=== PATIENT | male | born 1965 | race Two or more races ===

== ENCOUNTER 2024-07-01 16:30 | Outpatient (RCR) | payer MEDICAID, SELFPAY ==
--- NOTE | 2024-06-18 10:16 | PTNOTE_ITS ---
PT OP Initial Eval Patient Information Outpatient Physical Therapy Treatment Date: 06/18/24 Visit Reasons: low Back pain/Radiculopathy Medical Diagnosis: M54.5 Treatment Dx #1: LBP with radiculopathy Start of Care: 06/18/24 Date of Onset: 2022 Smoking Status Smoking Status: Never smoker Initial Assessment Subjective: Pt is 59 yr old nepali speaking male who reports LBP worse on the R side since falling in 2010 and then March 2023. The LBP runs down the R LE into the calf and limits standing tolerance to about 30 mins depending on the day. Increased pain with lifting, bending and prolonged sitting. 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 PMH: HTN Imaging: Xrays in EMR Lumbar dextroscoliosis 8 degrees, Prominent osteopenia, Chronic osteoporotic mild compressions L5, L3 moderate compression L1, Moderate disc narrowing L2-L3, L4-L5 Pt goal: less LBP and R LE pain Objective: Trunk ArOM: ? B SB 50% of normal with pain ? Extension: 20% with pain around L4-5, L5-S1 ? Flexion: 14 from floor with LBP ? B rotation: 60% with pain ? R SLR ROM: 45 deg. L SLR: 50 deg ? TTP: moderate paraspinals L5-S1 on R side ? Neuro: B SLR: negative Assessment: ? Pt presents with trunk flexion sensitivity and overlying myofascial pain ? and TTP around L5-S1 on R side consistent with ? lower lumbar disc bulge(s) with radiculopathy. Pt requires ski lled therapy in order to decrease ? pain and improve sitting/standing tolerance and has fair rehab potential. Eval ?followed by [facility] printout. Short Term and Area Field Manager Goals ? 1. Ind with [facility] ? 2. Improved sitting/standing tolerance to 45 minutes with <=4/10 LBP ? 3. Decreased lower paraspinal TTP from mod to min 4. Improved HH chore tolerance to at least 45 minutes with <=3/10 LBP and no ?increase in LE ssx ? Treatment Plan ? 1. Manual therapy ? 2. Therex ? 3. Modalities as indicated, moist heat, ice, estim, mechanical traction Frequency and Duration: 1-2x a week for 6 Rx sessions then reassess Certification Dates: 06/18/24 to 09/18/24 Procedure Charges OP PT Eval Mod Complex 30 minutes: Yes
--- NOTE | 2024-06-24 18:37 | PTNOTE_ITS ---
PT Outpatient Daily Note OP Daily Note Outpatient Physical Therapy Treatment Date: 06/24/24 Visit Reasons: low Back pain/Radiculopathy Subjective: Same as time of eval Objective: See F/S for therex MT: [facility] [[email or web address]] L/S x7' with flexbar Assessment: Pain with lumbar flexion limits some supine therex such as figure 4 position on R LE Plan: Continue per POC Length of Time (minutes) of Treatment: 30 Minutes Procedure Charges Therapeutic Exercise 30 minutes: Yes
--- NOTE | 2024-07-01 17:17 | PT.ODAYNRPT ---
PT Outpatient Daily Note OP Daily Note Outpatient Physical Therapy Treatment Date: 07/01/24 Visit Reasons: low Back pain/Radiculopathy Subjective: Same as time of eval Objective: See F/S for therex MT: [facility] L/S x7' with flexbar Assessment: Less pain with lumbar flexion limits some supine therex such as figure 4 position on R LE Plan: Continue per POC Length of Time (minutes) of Treatment: 30 Minutes Procedure Charges Therapeutic Exercise 30 minutes: Yes
== END 2024-07-08 23:59 | disposition home or self-care (01) ==
LOC: CPTX 16:30
PROVIDERS: PCP Physician Assistant; Referring Provider Physician Assistant; Visit Provider Physician Assistant
DX: M54.16 Radiculopathy, lumbar region (principal); I10 Essential (primary) hypertension
CPT/HCPCS: 97110; 97162

== ENCOUNTER 2024-07-31 16:30 | Outpatient (RCR) | payer MEDICAID, SELFPAY ==
--- NOTE | 2024-07-09 18:08 | PTNOTE_ITS ---
PT Outpatient Daily Note OP Daily Note Outpatient Physical Therapy Treatment Date: 07/09/24 Visit Reasons: Low back pain Subjective: Same as time of eval Objective: See F/S for therex MT: [facility] L/S x7' with flexbar Assessment: Less pain with lumbar flexion limits some supine therex such as figure 4 position on R LE Plan: Continue per POC Length of Time (minutes) of Treatment: 30 Minutes Procedure Charges Therapeutic Exercise 30 minutes: Yes
--- NOTE | 2024-07-17 17:39 | PT.ODAYNRPT ---
PT Outpatient Daily Note OP Daily Note Outpatient Physical Therapy Treatment Date: 07/17/24 Visit Reasons: Low back pain Subjective: The back feels about the same Objective: See F/S for therex Assessment: Slow progress with goals due to continued LBP Plan: Continue per POC Length of Time (minutes) of Treatment: 30 Minutes Procedure Charges Therapeutic Exercise 30 minutes: Yes
--- NOTE | 2024-07-31 17:40 | PT.ODS1RPT ---
PT OP Progress/Discharge Note Date of Service: 07/31/24 Progress Note/DC Note Progress Note/Discharge Note: DC Note Patient Information Visit Reasons: Low back pain Service Continue Service or Discharge: Discharge Discharge Date: 07/31/24 Status Subjective: The back feels about the same as before therapy, hurts. Objective: See F/S for therex TTP: mod of paraspinals Trunk AROM: FB: 14 from floor with LBP Extension: 50% of full with LBP Assessment: Pt has attended 6/6 visits with slow progress with goals due to continued LBP. He has not met goals but has improved trunk extension ROM. Ssx are consistent with Xrays that show mild compression FX's in L/S. Thank you for your referrals. Plan: D/C with [facility] Procedure Charges Therapeutic Exercise 30 minutes: Yes
== END 2024-08-07 23:59 | disposition home or self-care (01) ==
LOC: CPTX 16:30
PROVIDERS: PCP Physician Assistant; Referring Provider Physician Assistant; Visit Provider Physician Assistant
DX: M54.16 Radiculopathy, lumbar region (principal); M41.86 Other forms of scoliosis, lumbar region; I10 Essential (primary) hypertension
CPT/HCPCS: 97110

== ENCOUNTER 2024-08-25 20:11 | Emergency (ER) | payer MEDICAID, SELFPAY ==
[2024-08-25 20:12] VITALS: BMI 36.6
[2024-08-25 20:22] VITALS: BP 124/90; PULSE 96; RESP 18; TEMP 36.6; O2SAT 95
--- NOTE | 2024-08-25 20:29 | PD.EDNV ---
Nausea/Vomit./Diarrhea-RME/HPI General Chief complaint: Abdominal Pain Stated complaint: UPPER ABD PAIN, NAUSEA, DIARRHEA Time Seen by Provider: 08/25/24 20:19 Source: patient Arrival date/time: 08/25/24 20:11 59-year-old male presents to the ED with a complaint of diarrhea up to 3 times a day without any blood or mucus, with nausea without vomiting. Denies having a fever. This has been intermittent x 1 month. Mode of arrival: ambulatory Limitations: no limitations RME / HPI MD complaint: nausea and diarrhea Severity: moderate Severity scale (1-10): 5 Related Data Home Medications ?Medication ?Instructions ?Recorded ?Confirmed esomeprazole magnesium 40 mg 40 mg PO QDAY ##0 02/04/16 07/20/17 capsule,delayed release (Nexium) tamsulosin 0.4 mg capsule (Flomax) 0.4 mg PO QDAY ##0 03/07/16 07/20/17 alprazolam 0.5 mg tablet (Xanax) 0.5 mg PO BID #0 tabs 05/05/16 07/20/17 omeprazole 20 mg capsule,delayed 20 mg PO QDAY ##0 05/05/16 07/20/17 release sucralfate 1 gram tablet 1 gm ##0 05/05/16 lisinopril 10 mg tablet 10 mg PO QDAY #0 tabs 07/11/16 07/20/17 Previous Rx's ?Medication ?Instructions ?Recorded cyclobenzaprine 10 mg tablet 10 mg PO BID #14 tabs 02/24/21 acetaminophen 300 mg-codeine 30 mg 1 tab PO Q8H PRN pain #20 tabs 06/14/23 tablet calcium 600 mg (as 1 tab PO BID #60 tabs 06/14/23 carbonate)-vitamin D3 10 mcg (400 unit) tablet (Calcium 600 + D(3)) metoclopramide HCl 10 mg tablet 10 mg PO Q6H PRN nausea and 08/25/24 (Reglan) vomiting #20 tabs Allergies Allergy/AdvReac Type Severity Reaction Status Date / Time ibuprofen Allergy Intermediate GASTRITIS Verified 02/24/21 11:38 aspirin Allergy Unknown STOMACH Verified 02/24/21 11:38 ACHE Penicillins Allergy Gastrointestinal Verified 08/25/24 20:12 Upset Review of Systems Constitutional Constitutional: Reports system reviewed and no additional complaints, except as documented Eyes Eyes: Reports system reviewed and no additional complaints, except as documented, Denies dry eyes, Denies exophthalmos and Reports floaters Cardiovascular Cardiovascular: Denies chest pain with activity and Denies claudication ED Exam Narrative Physical exam: The abdomen is soft with mild tenderness mostly confined to the left upper and left lower abdomen. Negative for rebound tenderness. Negative for Jett sign. There is no guarding and there is no apparent masses. General Limitations: Present no limitations General appearance: Present alert and in no apparent distress Head Head exam: Present atraumatic Eye Eye exam: Present normal appearance and EOMI ENT ENT exam: Present normal exam, normal oropharynx and mucous membranes moist Neck Neck exam: Present normal inspection, full ROM and trachea midline Chest Chest inspection: Present normal inspection and symmetric chest wall rise Respiratory Respiratory exam: Present normal lung sounds bilaterally Cardiovascular Cardiovascular exam: Present regular rate, normal rhythm and normal heart sounds Abdominal Exam Abdominal exam: Present soft and tenderness (Mildly tender to palpation. Negative rebound tenderness, negative Jett sign. ) Extremities Exam Extremities exam: Present normal inspection and full ROM Back Exam Back exam: Present normal inspection and full ROM Neurological Exam Neurological exam: Present alert and oriented X3 Psychiatric Psychiatric exam: Present normal affect and normal mood Skin Skin exam: Present warm, dry, intact and normal color Course Course Course Narrative: Patient will have a CBC, CMP, UA drawn, patient will have Zofran p.o. 4 mg. Quality Measures none Orders Category Date Time Status CBC Stat Lab 08/25/24 20:35 Completed Comprehensive Metabolic Panel Stat Lab 08/25/24 20:35 Completed Lipase Stat Lab 08/25/24 20:35 Completed Urinalysis Stat Lab 08/25/24 21:00 Completed Ondansetron Odt [Zofran Odt] Med 08/25/24 20:28 Discontinued 4 mg PO X1 ONE Done Vital Signs Vital signs: Vital Signs Temperature 98 F 08/25/24 20:22 Pulse Rate 96 08/25/24 20:22 Respiratory Rate 18 08/25/24 20:22 Blood Pressure 124/90 H 08/25/24 20:22 Pulse Oximetry (%) 95 08/25/24 20:22 Oxygen Delivery Method Room Air 08/25/24 20:22 Pulse ox 95% room air. Nausea/Vomiting/Diarrhea Patient data External records reviewed:: Other (specify) Clinical information provided by:: none Social determinants that could affect healthcare access:: none Patient has the following chronic illnesses:: Denies How is presenting disease/condition affected by chronic disease/condition?: no chronic disease Evaluation data The following diagnostics were reviewed and interpreted by me:: lab results (Demonstrate dehydration) Lab and/or radiology exams considered but not ordered:: None Interpretation Summary: None Medications / Prescriptions Medications / Prescriptions considered but not ordered:: None Medication administrations:: Medication Administration History Discontinued Medications Ondansetron HCl (Ondansetron Odt 4 Mg Tabrap) 4 mg PO X1 ONE; Protocol Stop: 08/25/24 20:29 Last Admin: 08/25/24 21:01 Dose: 4 mg Documented By: KF Done Consultations Consultation(s) initiated? (list below): No Diagnosis Nausea Differential Diagnosis: other Most likely diagnosis given after review of the tests above:: None I just Admission Indicated Admission indicated?: not indicated Explain why admission is indicated or not indicated:: N/A Admission Request Was there a request for admission?: No Disposition Plan Disposition Plan: other (specify) Discharge Attestation Discharge Attestation: Patient will be discharged in no apparent distress Discharge Plan Plan Patient Disposition: HOME (Self Care) Discharge Disposition comment: Patient will be discharged to home in no apparent distress. Patient will have Zofran 4 mg sent to the pharmacy of his choice. Patient has to follow-up with primary care physician Patient condition on transfer: Stable Prescriptions/Referrals Prescriptions/Med Rec: New metoclopramide HCl [Reglan] 10 mg tablet 10 mg PO Q6H PRN (Reason: nausea and vomiting) Qty: 20 0RF No Action esomeprazole magnesium [Nexium] 40 MG capsule,delayed release(DR/EC) 40 mg PO QDAY Qty: 0 tamsulosin [Flomax] 0.4 MG capsule,extended release 24hr 0.4 mg PO QDAY Qty: 0 sucralfate 1 GM tablet 1 gm Qty: 0 alprazolam [Xanax] 0.5 MG tablet 0.5 mg PO BID Qty: 0 omeprazole 20 MG capsule,delayed release(DR/EC) 20 mg PO QDAY Qty: 0 lisinopril 10 MG tablet 10 mg PO QDAY Qty: 0 cyclobenzaprine 10 mg tablet 10 mg PO BID Qty: 14 0RF calcium carbonate-vitamin D3 [Calcium 600 + D(3)] 600 mg-10 mcg (400 unit) tablet 1 tab PO BID Qty: 60 0RF acetaminophen-codeine 300-30 mg tablet 1 tab PO Q8H PRN (Reason: pain) Qty: 20 0RF Referrals: Zachary Yepez MD [Primary Care Provider] - In 1 week Problem List Clinical Impression: Gastritis Impression comment: Patient is to pick and choose his diet as tolerated. Patient/Caregiver Discharge Instructions Discharge Activity: activity as tolerated Print Language: Macanese Stand Alone Forms: Abby Award Info., Patient Portal Info Letter PA/VEST BACKER Supervising Physician PA/VEST BACKER Supervising Physician: Marlo Reyez
[2024-08-25 20:47] LABS: Basophils % (Auto) 0 % (0-2.5); Eosinophils % (Auto) 0 % (0-10); Hematocrit 43.9 % (41.0-53.0); Hemoglobin 15.5 g/dL (13.5-16.0); Immature Granulocytes % (Auto) 0 % (0-0); Immature Granulocytes Auto 0.04 Thou/mm3 (0.00-0.00); Lymphocytes # (Auto) 2.2 Thou/mm3 (1.0-4.8); Lymphocytes % (Auto) 19 % (10-50); Mean Corpuscular HGB Conc 35.3 g/dl (31.0-37.0); Mean Corpuscular Hemoglobin 31.8 pg (25.0-35.0); Mean Corpuscular Volume 90 fL (80-100); Monocytes # (Auto) 1.1 Thou/mm3 (0.0-0.8); Monocytes % (Auto) 9 % (0-12); Neutrophils # (Auto) 8.3 Thou/mm3 (1.8-7.7); Neutrophils % (Auto) 71 % (37-80); Nucleated Red Blood Cell % 0 /100 WBC (0); Platelet Count 260 Thou/mm3 (140-440); RDW Standard Deviation 43.4 fL (35.1-43.9); Red Blood Count 4.87 Miln/mm3 (4.50-5.90); White Blood Count 11.6 Thou/mm3 (3.8-10.6)
[2024-08-25] MEDS: ONDANSETRON ODT 4 MG TABRAP PO (21:01)
[2024-08-25 21:04] LABS: Alanine Aminotransferase 41 U/L (10-49); Albumin, Serum 4.6 gm/dL (3.4-4.8); Albumin/Globulin Ratio 1.6 (1.2-2.2); Alkaline Phosphatase 83 U/L (46-116); Anion Gap 6 (7-16); Aspartate Amino Transferase 34 U/L (0-34); BUN/Creatinine Ratio 22 Ratio (12-20); Bilirubin,Total 0.7 mg/dL (0.3-1.2); Blood Urea Nitrogen 22 mg/dL (9-23); Carbon Dioxide 24.1 mMol/L (20.0-31.0); Chloride 103 mMol/L (98-107); Estimated Creatinine Clearance 97.1 mL/min (>60); Globulin 2.8 gm/dL (2.3-3.5); Glucose 105 mg/dL (74-106); Lipase 32 U/L (12-53); Osmolality,Calculated 269 (275-295); Potassium 4.4 mMol/L (3.4-5.1); Sodium 133 mMol/L (136-145); Total Protein 7.4 gm/dL (5.7-8.2); eGFR > 60 See Note
[2024-08-25 21:04] LABS: Collection Type, Urine Clean Catch; Squamous Epithelial Cell,Urine 0 /hpf (0-5)
[2024-08-25 21:10] LABS: Bilirubin,Urine Negative (Negative); Blood,Urine 2+ (Negative); Clarity,Urine Clear (Clear/Hazy); Color,Urine Yellow (Lt Yel-Yel); Glucose, Urine Negative (Negative); Hyaline Casts,Urine < 1 /hpf (0-1); Ketones,Urine Negative (Negative); Leukocyte Esterase,Urine Negative (Negative); Nitrite,Urine Negative (Negative); Protein,Urine Trace (Neg - Trace); RBC,Urine 13 /hpf (0-3); Specific Gravity,Urine 1.029 (1.001-1.035); Urobilinogen,Urine Negative mg/dL (0.0-1.0); WBC,Urine 1 /hpf (0-5)
== END 2024-08-25 22:32 | disposition home or self-care (01) ==
PROVIDERS: Physician Assistant; Emergency Provider Emergency Medicine; PCP Obstetrics & Gynecology
DX: K29.70 Gastritis, unspecified, without bleeding (principal)
CPT/HCPCS: 36415; 80053; 81001; 83690; 85025; 99283; Q0162